=== PATIENT | male | born 1970 | race Caucasian/White ===

== ENCOUNTER → 2018-08-28 | Day surgery (SDC) | payer OTHER ==
[~2018-08-28] MED LIST: iohexol 300 MG/1 ML 10ml vial ONE; sodium bicarbonate 0.48mEq/ml 5ml inj. ONE
== END | disposition home or self-care (01) ==
LOC: RAD 10:16
PROVIDERS: ATTEND Prevention Professional
DX: Z03.89 Encounter for observation for other suspected diseases and conditions ruled out (principal)
CPT/HCPCS: 23350; 73222; 77002; Q9967

== ENCOUNTER → 2018-10-26 | Day surgery (SDC) | payer OTHER ==
[~2018-10-26] MED LIST changes: +GADOPENTETATE DIMEGLUMINE 2.5 MMOL/5 ML VIAL IV ONE; -iohexol 300 MG/1 ML 10ml vial ONE; -sodium bicarbonate 0.48mEq/ml 5ml inj. ONE
== END | disposition home or self-care (01) ==
LOC: RAD 08:57
PROVIDERS: ATTEND Prevention Professional
DX: S46.011A Strain of muscle(s) and tendon(s) of the rotator cuff of right shoulder, initial encounter (principal); M25.511 Pain in right shoulder; X58.XXXA Exposure to other specified factors, initial encounter; Y93.89 Activity, other specified; Y92.89 Other specified places as the place of occurrence of the external cause; Y99.8 Other external cause status
CPT/HCPCS: 23350; 73040; 73222; Q9963